=== PATIENT | female | born 1950 | race Caucasian/White ===

== ENCOUNTER 2017-07-02 12:10 | Inpatient (IN) | payer OTHER ==
[~2017-07-02] VITALS: Ht 180.3 cm; Wt 93.9 kg
--- NOTE | ~2017-07-02 | H ---
[facility] [place] [address] HISTORY AND PHYSICAL Name: EDWARD SHAIKH Room #: 450-P ADM IN M.R.#: [id number] Admission: 07/02/17 Attend Phys: Cirilo Fitzpatrick MD Discharge: Date of : 54 Report #: [id number] THIS REPORT FOR: //name// CC: Cirilo Medeiros Chaudhuri DATE OF SERVICE: 07/02/2017 REASON FOR ADMISSION: Pain and inflammation of bilateral amputation stumps. HISTORY OF PRESENT ILLNESS: The patient is a pleasant 66-year-old female who suffers from significant complications from diabetes with remote history of osteomyelitis in her lower extremities as well as severe neuropathy. She was doing well until Thursday and then started experiencing and noticing erythema and pain all over her left lower extremity BKA stump. This also has now progressed to involve the other extremity and has been progressing upwards towards her groin and hence she presented to the Emergency Room. Here she was noted to have significant leukocytosis as well as a fairly severe appearing cellulitis involving both extremities and also has evidence of acute renal failure concerning for severe sepsis and is being admitted for further workup of the same. When seen by me today, she has significant pain in both lower extremities; however, otherwise denies nausea, vomiting, diarrhea, dizziness, chest pain, shortness of breath, skin rashes or other problems at this time. PAST MEDICAL HISTORY: Includes: 1. 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 2. Obesity. 3. Sleep apnea. 4. Hypertension. 5. Depression. PAST SURGICAL HISTORY: Includes bilateral BKAs. FAMILY HISTORY: Includes diabetes. ALLERGIES: REPORTED TO CONTRAST DYE AND IODINE. MEDICATIONS: Refer to reconciliation note. SOCIAL HISTORY: No tobacco, alcohol or drug use reported. REVIEW OF SYSTEMS: Twelve-point review of systems performed and negative except as mentioned in history of present illness. PHYSICAL EXAMINATION: [facility] [address] [place] [address] HISTORY AND PHYSICAL Name: EDWARD SHAIKH Room #: 450-[facility] IN [facility].#: [id number] Admission: 07/02/17 Attend Phys: Cirilo Fitzpatrick MD Discharge: Date of : 54 Report #: [id number] VITAL SIGNS: Today, afebrile, pulse of 91, respiratory rate of 19, blood pressure is 142/66, O2 sat is 97 on room air. GENERAL: Awake, alert, no acute distress. HEENT: Unremarkable. NECK: No JVD or thyromegaly. CARDIOVASCULAR: S1 and S2 present. Regular. RESPIRATORY: Air entry present bilaterally. ABDOMEN: Obese, soft, nontender. EXTREMITIES: With extensive cellulitis and erythema primarily affecting entire back of left BKA stump with extending almost up to perineum. Anterior aspect also involved measuring approximately 20 x 15 cm with some area of sparing. Right lower extremity stump with minimal erythema at the base of stump with small lesion measuring about 1 cm noted with minimal drainage. No obvious deep infection is palpated. No obvious fluctuance is palpated. NEUROLOGIC: Awake, alert, no obvious focal findings. SKIN: Unremarkable otherwise LABORATORY DATA AND INVESTIGATIONS: CBC notable for leukocytosis of 22.2, hemoglobin 11.3, platelets of 203. Chemistry with hyponatremia 127, BUN and creatinine elevated at 44 and 2.4, glucose elevated at 372. Lactic acid within normal range. IMAGING: Not performed. ASSESSMENT AND PLAN: 1. This is a 66-year-old female presenting with severe cellulitis affecting both lower extremities with concerns for developing severe sepsis. At the present time, the patient has evidence of organ dysfunction with renal failure. She has been started on high volume fluid resuscitation and we will continue broad-spectrum IV antibiotic coverage with vancomycin, renally adjusted as well as Zosyn renally adjusted, and will assess for improvement. If she is not improving or worsening, she will require an MRI of her extremities to rule out any deep involvement; however, based on clinical examination this seems unlikely at the present time. 2. Diabetes with poor control at the present time with renal failure. We will hold glimepiride. We will resume her Levemir as well as start high dose sliding scale coverage. 3. Hyponatremia in the setting of hyperglycemia and diabetes. Hydrate and assess for improvement, control diabetes. 4. Acute renal failure, likely prerenal in the setting of sepsis. Hydrate and assess for improvement. 5. Deep venous thrombosis prophylaxis with low dose Lovenox. 6. Depression. Resume home meds. [address] [address] HISTORY AND PHYSICAL Name: EDWARD SHAIKH Room #: 450-[facility] M.R.#: [id number] Admission: 07/02/17 Attend Phys: Cirilo Fitzpatrick MD Discharge: Date of : 54 Report #: [id number] 7. The patient's condition and prognosis remains guarded at this time. She will be closely monitored with changes made pending her clinical progress. <ELECTRONICALLY SIGNED> By: Cirilo Fitzpatrick MD 07/03/17 1220 [id number] 1515 Cirilo Fitzpatrick MD /nt
[~2017-07-02 12:10] MED LIST: ACID REDUCER20 MG PO; AMARYL4 MG PO; AMITRIPTYLINE H25 M2 PO; APIDRA SOL100 UNIT/1 SQ; APIDRA SUBQ; ASPIR 8181 MG PO; AUGMENTIN 875875 MG PO; CEFTIN500 MG PO; DUONEB 2.5-0.5 M3 ML INH; ENOXAPARIN40 MG/0.1 SUBQ; FLOMAX0.4 MG PO; GABAPENTIN 100100 MG PO; GLUCAGEN1 MG IM; GLUCOSE GEL38 GM PO; GLUCOSE4 GM PO; HYDROCODONE-APA1 TA1 PO; KEFLEX500 MG PO; LANTUS SOL100 UNIT/1 SQ; LANTUS100 UNIT/M SUBQ; LEVEMIR SUBQ; LISINOPRIL10 MG PO; LISINOPRIL20 MG PO; MIRALAX17 GM PO; NEURONTIN600 MG PO; NOVOLOG100 UNIT/1 SUBQ; PANTOPRAZOLE SO40 M1 PO; PEPCID20 MG PO; PRINIVIL20 MG PO; SENNA8.6 MG PO; SERTRALINE HCL50 MG PO; TRIPLE ANTIBIO1 EAC1 TOP; TYLENOL325 MG PO; ZOLOFT50 MG PO
[2017-07-02 12:11] VITALS: BP 129/63
[2017-07-02 13:14] LABS: HEMATOCRIT 34.3 % (37.0-47.0); HEMOGLOBIN 11.3 gm/dL (12.0-15.0); MCH 26.5 pg (26.0-34.0); MCHC 32.9 g/dL (28.0-37.0); MCV 80.6 fL (80.0-100.0); PLATELET COUNT 203 thou/uL (150-400); RBC 4.25 mil/uL (4.20-5.00); RDW 15.7 % (10.5-14.5); WBC 22.2 thou/uL (4.0-11.0)
[2017-07-02 13:17] LABS: CALCIUM 9.1 mg/dL (8.5-10.1); CREATININE 2.4 mg/dL (0.6-1.0); POTASSIUM 4.8 mmol/L (3.5-5.1)
[2017-07-02 13:20] LABS: MANUAL DIFF YES
[2017-07-02 13:23] LABS: ALBUMIN 2.6 g/dL (3.4-5.0)
[2017-07-02 13:24] LABS: TOTAL BILIRUBIN 0.6 mg/dL (<0.1-1.0)
[2017-07-02] MEDS ORDERED: LISINOPRIL20 MG PO (13:50)
[2017-07-02] MEDS ORDERED: NEURONTIN600 MG PO (13:51)
[2017-07-02] MEDS ORDERED: PEPCID20 MG PO (13:52)
[2017-07-02 13:59] LABS: ABSOLUTE NEUTROPHILS 20.9 thou/uL (1.4-8.2); PLATELET ESTIMATE NORMAL; TOTAL CELL COUNT 100
[2017-07-02 14:08] VITALS: BP 142/66
[2017-07-02 14:29] VITALS: BP 142/66
[2017-07-02 14:45] VITALS: BP 128/51
[2017-07-02] MEDS ORDERED: ACID CONTROLLER20 MG PO (15:12)
[2017-07-02 19:38] VITALS: BP 116/49
[2017-07-02 23:58] VITALS: BP 106/50
[2017-07-03 04:35] VITALS: BP 132/62
[2017-07-03 06:40] LABS: HEMATOCRIT 30.6 % (37.0-47.0); HEMOGLOBIN 10.1 gm/dL (12.0-15.0); MCHC 33.2 g/dL (28.0-37.0); MCV 81.4 fL (80.0-100.0); RBC 3.76 mil/uL (4.20-5.00); RDW 15.5 % (10.5-14.5); WBC 12.5 thou/uL (4.0-11.0)
[2017-07-03 06:54] LABS: CALCIUM 8.7 mg/dL (8.5-10.1); CREATININE 1.9 mg/dL (0.6-1.0)
[2017-07-03 06:57] LABS: POTASSIUM 3.2 mmol/L (3.5-5.1)
[2017-07-03 07:08] VITALS: BP 100/57
[2017-07-03 11:26] VITALS: BP 126/63
[2017-07-03 15:03] VITALS: BP 129/58
[2017-07-03 19:50] VITALS: BP 142/62
[2017-07-04 03:35] VITALS: BP 119/65
[2017-07-04 06:48] LABS: HEMATOCRIT 29.5 % (37.0-47.0); HEMOGLOBIN 9.7 gm/dL (12.0-15.0); MCHC 32.9 g/dL (28.0-37.0); MCV 81.9 fL (80.0-100.0); RBC 3.6 mil/uL (4.20-5.00); RDW 15.5 % (10.5-14.5); WBC 7.4 thou/uL (4.0-11.0)
[2017-07-04 07:01] LABS: CALCIUM 8.8 mg/dL (8.5-10.1); CREATININE 1.7 mg/dL (0.6-1.0); POTASSIUM 3.8 mmol/L (3.5-5.1)
[2017-07-04 08:07] VITALS: BP 107/56
[2017-07-04 12:53] VITALS: BP 121/55
[2017-07-04 16:30] VITALS: BP 131/56
[2017-07-04 19:34] VITALS: BP 117/53
[2017-07-05 03:20] VITALS: BP 150/76
[2017-07-05 04:52] LABS: CALCIUM 8.7 mg/dL (8.5-10.1); CREATININE 1.5 mg/dL (0.6-1.0); POTASSIUM 4.2 mmol/L (3.5-5.1)
[2017-07-05 07:31] VITALS: BP 135/73
[2017-07-05 11:31] VITALS: BP 144/71
[2017-07-05 15:04] VITALS: BP 147/76
[2017-07-05 19:23] VITALS: BP 149/58
[2017-07-06 03:51] VITALS: BP 154/73
[2017-07-06 05:01] LABS: HEMATOCRIT 26.8 % (37.0-47.0); HEMOGLOBIN 8.8 gm/dL (12.0-15.0); MCH 26.8 pg (26.0-34.0); MCHC 32.9 g/dL (28.0-37.0); MCV 81.5 fL (80.0-100.0); PLATELET COUNT 210 thou/uL (150-400); RBC 3.29 mil/uL (4.20-5.00); RDW 15.4 % (10.5-14.5); WBC 9.4 thou/uL (4.0-11.0)
[2017-07-06 05:17] LABS: MANUAL DIFF YES
[2017-07-06 05:21] LABS: CALCIUM 8.5 mg/dL (8.5-10.1); CREATININE 1.3 mg/dL (0.6-1.0)
[2017-07-06 06:58] VITALS: BP 145/67
[2017-07-06 08:30] LABS: ABSOLUTE NEUTROPHILS 7.3 thou/uL (1.4-8.2); ANISOCYTOSIS 1+; METAMYELOCYTES 2 %; MYELOCYTES 1 %; POLYCHROMASIA OCCASIONAL; TOTAL CELL COUNT 100
[2017-07-06 12:20] VITALS: BP 153/65
[2017-07-06 20:24] VITALS: BP 130/63
[2017-07-07 04:38] VITALS: BP 194/84
[2017-07-07 05:33] VITALS: BP 168/66
[2017-07-07 08:36] VITALS: BP 117/69
[2017-07-07] MEDS ORDERED: GABAPENTIN 100100 MG PO (10:12)
[2017-07-07] MEDS ORDERED: PERCOCET PO (10:12)
[2017-07-07] MEDS ORDERED: AUGMENTIN 875875 MG PO (10:13)
[2017-07-07] MEDS ORDERED: DOXYCYCLINE 10100 MG PO (10:13)
[2017-07-07 15:07] VITALS: BP 117/69
== END 2017-07-07 17:03 | disposition home or self-care (01) | DRG 564 ==
LOC: ER 12:10 → 4W 13:52 → EROBS 13:52 → 4W 14:25
PROVIDERS: Hospitalist; Internal Medicine Endocrinology, Diabetes & Metabolism; Physician Assistant
DX: T87.43 Infection of amputation stump, right lower extremity (principal); A41.9 Sepsis, unspecified organism; E43 Unspecified severe protein-calorie malnutrition; N17.0 Acute kidney failure with tubular necrosis; R65.20 Severe sepsis without septic shock; L03.116 Cellulitis of left lower limb; L03.115 Cellulitis of right lower limb; E87.1 Hypo-osmolality and hyponatremia; I10 Essential (primary) hypertension; E11.42 Type 2 diabetes mellitus with diabetic polyneuropathy; G47.33 Obstructive sleep apnea (adult) (pediatric); E66.9 Obesity, unspecified; E11.65 Type 2 diabetes mellitus with hyperglycemia; F32.9 Major depressive disorder, single episode, unspecified; E87.6 Hypokalemia; Y83.5 Amputation of limb(s) as the cause of abnormal reaction of the patient, or of later complication, without mention of misadventure at the time of the procedure; Z68.28 Body mass index [BMI] 28.0-28.9, adult; Z79.4 Long term (current) use of insulin; Z79.84 Long term (current) use of oral hypoglycemic drugs; Z79.899 Other long term (current) drug therapy; Z87.891 Personal history of nicotine dependence; Z89.511 Acquired absence of right leg below knee; Z98.51 Tubal ligation status; Z91.041 Radiographic dye allergy status; Z83.3 Family history of diabetes mellitus
CPT/HCPCS: 10045

== ENCOUNTER 2017-09-26 14:30 | Emergency (ER) | payer OTHER ==
[~2017-09-26] VITALS: Ht 170.2 cm; Wt 104.3 kg
[~2017-09-26 14:30] MED LIST changes: +ACID CONTROLLER20 MG PO; +DOXYCYCLINE 10100 MG PO; +PERCOCET PO
[2017-09-26 15:27] LABS: HEMATOCRIT 32.2 % (37.0-47.0); HEMOGLOBIN 10.5 gm/dL (12.0-15.0); MCH 25.2 pg (26.0-34.0); MCHC 32.6 g/dL (28.0-37.0); MCV 77.3 fL (80.0-100.0); PLATELET COUNT 248 thou/uL (150-400); RBC 4.17 mil/uL (4.20-5.00); RDW 18.8 % (10.5-14.5); WBC 6.4 thou/uL (4.0-11.0)
[2017-09-26 15:28] LABS: MANUAL DIFF YES
[2017-09-26 15:53] LABS: ALBUMIN 2.7 g/dL (3.4-5.0); CALCIUM 8.9 mg/dL (8.5-10.1); CREATININE 1.6 mg/dL (0.6-1.0); POTASSIUM 3.6 mmol/L (3.5-5.1); TOTAL BILIRUBIN 0.3 mg/dL (<0.1-1.0); TOTAL PROTEIN 6.6 g/dL (6.4-8.2)
[2017-09-26 16:01] LABS: ABSOLUTE NEUTROPHILS 4.5 thou/uL (1.4-8.2); TOTAL CELL COUNT 100
[2017-09-26] MEDS ORDERED: NOVOLOG100 UNIT/1 SUBQ (16:45)
[2017-09-26] MEDS ORDERED: LANTUS100 UNIT/M SUBQ (17:23)
== END 2017-09-26 17:56 | disposition home or self-care (01) ==
LOC: ER 14:30
PROVIDERS: Nurse Practitioner Family
DX: E11.65 Type 2 diabetes mellitus with hyperglycemia (principal); E11.622 Type 2 diabetes mellitus with other skin ulcer; E11.40 Type 2 diabetes mellitus with diabetic neuropathy, unspecified; L89.892 Pressure ulcer of other site, stage 2; I10 Essential (primary) hypertension; G47.33 Obstructive sleep apnea (adult) (pediatric); Z79.4 Long term (current) use of insulin; Z87.891 Personal history of nicotine dependence; Z91.19 Patient's noncompliance with other medical treatment and regimen; Z91.041 Radiographic dye allergy status

== ENCOUNTER 2018-02-25 05:33 | Inpatient (IN) | payer OTHER ==
[2018-02-25] VITALS (7 sets, daily range): BP systolic 75–110; BP diastolic 40–60
--- NOTE | ~2018-02-25 | HC ---
[facility] [place] [address] [address] [place] [address] CONSULTATION Name: EDWARD SHAIKH Room #: 460-P ADM IN M.R.#: [id number] Admission: 02/25/18 Attend Phys: Kanu Darby MD Discharge: Date of : 54 Report #: [id number] THIS REPORT FOR: //name// CC: Kanu Darby [facility] REQUESTING PHYSICIAN: Dr. Kanu Darby. REASON FOR CONSULTATION: Medical management. HISTORY OF PRESENT ILLNESS: The patient is a 67-year-old female with a history of bilateral fantl-jnu-kslu amputations who was readmitted for revision of her left scuoc-bzk-isho amputation. She has a history of hypertension and diabetes. She recently completed a rehabilitation course at [facility] along with IV antibiotics; however, there has been persistent drainage from the left stump and therefore she was admitted for revision. PAST MEDICAL HISTORY: Diabetes type 2, insulin requiring; hypertension, history of osteomyelitis of the left foot. PAST SURGICAL HISTORY: Bilateral BKA. FAMILY HISTORY: Noncontributory. SOCIAL HISTORY: A 75-abal-magm history of smoking, quit about a year ago. She lives at home. ALLERGIES: CONTRAST IODINE. MEDICATIONS: Lisinopril, Levemir, Zoloft, gabapentin, Humalog. REVIEW OF SYSTEMS: She denies headache, chest pain, shortness of breath, abdominal pain, nausea, vomiting, diarrhea, constipation, dysuria, or syncope. OBJECTIVE: VITAL SIGNS: Temperature 37.7, pulse 95, respirations 18, blood pressure , O2 sat 96% on room air. GENERAL: She is awake and alert, in no distress. LUNGS: Clear. HEART: Regular. ABDOMEN: Soft, normoactive bowel sounds. EXTREMITIES: Left stump is dressed. Right stump is unremarkable. NEUROLOGIC: She is alert and oriented. ASSESSMENT: 1. Diabetes type 2. 2. Hypertension. [facility] [address] [place] [address] CONSULTATION Name: EDWARD SHAIKH Room #: 460-[facility] IN [facility]#: [id number] Admission: 02/25/18 Attend Phys: Kanu Darby MD Discharge: Date of : 54 Report #: [id number] 3. Infected left BKA stump. 4. Hyperkalemia. 5. Anemia of chronic disease. PLAN: For now, hold her JIGAR inhibitor, this may explain the elevated potassium with followup lab data. When she is tolerating a diet, reinstitute her insulin, although she seems to quite high doses, so we will have to monitor that. Social work to assist with discharge planning needs. We will follow her hospital stay with you. <ELECTRONICALLY SIGNED> By: Angel Galindo MD 02/26/18 1258 0835 1229 Angel Galindo MD /nt
--- NOTE | ~2018-02-25 | O ---
[facility] [place] [address] [address] [place] [address] OPERATIVE REPORT Name: EDWARD SHAIKH Room #: 460-P ADM IN M.R.#: [id number] Admission: 02/25/18 Attend Phys: Kanu Darby MD Discharge: Date of : 54 Report #: [id number] THIS REPORT FOR: //name// CC: Kanu Darby [facility] DATE OF SERVICE: 03/01/2018 PREOPERATIVE DIAGNOSIS: Left leg stump abscess. POSTOPERATIVE DIAGNOSIS: Left leg stump abscess. PROCEDURE: Left leg irrigation and debridement. SURGEON: Kanu Darby MD. MANAGEMENT EXPERT: Liya Cordova. ANESTHESIA: General. ESTIMATED BLOOD LOSS: Minimal. DRAINS: One Hemovac drain was placed. COMPLICATIONS: There were no complications. DESCRIPTION OF PROCEDURE: The patient was brought to the operating room where she was placed under general anesthesia. Once under adequate general anesthesia, her left lower extremity was prepped and draped in a sterile manner. The extremity was elevated and a tourniquet placed to 300 mmHg. The patient's previous incision was then opened. There was a slight amount of purulence noted, significantly improved from her last visit. The wound was completely opened. Any necrotic tissue was removed with a rongeur of which there was not much, and the wound was then irrigated copiously with normal saline solution through pulsatile lavage. A medium Hemovac drain was then placed, and subsequent to this, the wound was closed with 2-0 nylon and jose for the skin. The wounds were dressed with Xeroform, 4 x 4s, and a sterile soft compressive dressing was placed. Tourniquet was let down at approximately 20 minutes. There were no complications from the procedure. The patient went to the recovery room without incident. <ELECTRONICALLY SIGNED> By: Kanu Darby MD 03/02/18 0727 0839 1009 Kanu Darby MD /nt
--- NOTE | ~2018-02-25 | O ---
[facility] [place] [address] [place] [address] OPERATIVE REPORT Name: EDWARD SHAIKH Room #: 460-P [facility] IN M.R.#: [id number] Admission: 02/25/18 Attend Phys: Kanu Darby MD Discharge: Date of : 54 Report #: [id number] THIS REPORT FOR: //name// CC: Kanu Darby [facility] DATE OF SERVICE: 02/25/2018 PREOPERATIVE DIAGNOSIS: Left lower extremity stump wound infection. POSTOPERATIVE DIAGNOSIS: Left lower extremity stump wound infection. PROCEDURE: Left lower extremity below knee amputation stump irrigation and debridement. SURGEON: Kanu Darby MD CERAMICS TECHNICIAN: Liya Cordova PA-C ANESTHESIA: General. ESTIMATED BLOOD LOSS: Minimal. DRAINS: One Hemovac drain was placed. COMPLICATIONS: There were no complications. TOURNIQUET TIME: 20 minutes. DESCRIPTION OF PROCEDURE: The patient brought to the operating room where she was placed under general anesthesia. Once under adequate general anesthesia, her left lower extremity was prepped and draped in sterile manner. The extremity was elevated and a tourniquet placed to 300 mmHg. The patient's previous scar was excised sharply with a 15 blade and extended medially approximately 6 cm. This was then noted to have abundant purulence, particularly medially. This was then cultured. This was then followed down to the distal tibial stump area itself, which was then debrided with a rongeur. Any necrotic soft tissue was debrided with a rongeur. The pulsatile lavage was utilized to then irrigate the stump with 3 liters of normal saline solution. Once complete, the wound was irrigated once again copiously with normal saline and closed with 2-0 PDS and the subcutaneous tissues and 2-0 nylon with jose for the skin. The wound was dressed with Xeroform, 4 x 4s, and sterile soft compressive dressing was placed. Tourniquet was let down approximately 20 [facility] [address] [place] [address] OPERATIVE REPORT Name: NEELEDWARD Room #: 460-P [facility] IN [facility]#: [id number] Admission: 02/25/18 Attend Phys: Kanu Darby MD Discharge: Date of : 54 Report #: [id number] minutes. There were no complications from the procedure. The patient tolerated the procedure well and went to the recovery room without incident. <ELECTRONICALLY SIGNED> By: Kanu Darby MD 03/01/18 0836 1331 1406 Kanu Darby MD /nt
[~2018-02-25 05:33] MED LIST changes: +TYLENOL EXTRA500 MG PO; +ZOLOFT100 MG PO; +ZOSYN 3.3753.375 GM IV
[2018-02-26 03:52] VITALS: BP 101/64
[2018-02-26 06:37] LABS: HEMATOCRIT 31.7 % (37.0-47.0); HEMOGLOBIN 10.3 gm/dL (12.0-15.0)
[2018-02-26 06:55] LABS: POTASSIUM 5.3 mmol/L (3.5-5.1)
[2018-02-26 08:06] VITALS: BP 122/49
[2018-02-26 15:43] VITALS: BP 98/59
[2018-02-26 19:18] VITALS: BP 94/57
[2018-02-27 03:21] VITALS: BP 93/60
[2018-02-27 05:09] LABS: HEMOGLOBIN 9.7 gm/dL (12.0-15.0); MCH 26.5 pg (26.0-34.0); MCHC 33.2 g/dL (28.0-37.0); MCV 79.8 fL (80.0-100.0); RBC 3.64 mil/uL (4.20-5.00); WBC 5.4 thou/uL (4.0-11.0)
[2018-02-27 05:19] LABS: CALCIUM 8.8 mg/dL (8.5-10.1); CREATININE 2.1 mg/dL (0.6-1.0); POTASSIUM 4.9 mmol/L (3.5-5.1)
[2018-02-27 07:56] VITALS: BP 92/69
[2018-02-27 15:36] VITALS: BP 119/62
[2018-02-27 19:10] VITALS: BP 103/62
[2018-02-28 03:05] VITALS: BP 137/64
[2018-02-28 08:09] VITALS: BP 120/70
[2018-02-28 16:14] VITALS: BP 104/60
[2018-02-28 19:42] VITALS: BP 130/73
[2018-03-01 03:46] VITALS: BP 113/69
[2018-03-01 04:34] LABS: ABSOLUTE NEUTROPHILS 3.6 thou/uL (1.4-8.2); BASOPHILS 0.7 % (0.0-2.0); EOSINOPHILS 4.2 % (0.0-3.0); HEMATOCRIT 30.2 % (37.0-47.0); LYMPHOCYTES 24.4 % (24.0-44.0); MCH 26.3 pg (26.0-34.0); MCHC 33.2 g/dL (28.0-37.0); MCV 79.2 fL (80.0-100.0); MONOCYTES 8.5 % (1.0-8.0); PLATELET COUNT 221 thou/uL (150-400); POLYS 62.2 % (36.0-66.0); RBC 3.81 mil/uL (4.20-5.00); RDW 15.9 % (10.5-14.5); WBC 5.8 thou/uL (4.0-11.0)
[2018-03-01 07:40] VITALS: BP 119/74
[2018-03-01 10:00] VITALS: BP 116/75
[2018-03-01 16:00] VITALS: BP 115/70
[2018-03-01 19:44] VITALS: BP 130/53
[2018-03-02 02:54] VITALS: BP 102/61
[2018-03-02 08:06] VITALS: BP 121/64
[2018-03-02 15:40] VITALS: BP 139/74
[2018-03-02 19:36] VITALS: BP 130/72
[2018-03-03 03:25] VITALS: BP 113/67
[2018-03-03 07:20] VITALS: BP 109/66
[2018-03-03] MEDS ORDERED: ROCEPHIN 11 GM/1001 IV (12:42)
[2018-03-03] MEDS ORDERED: LANTUS100 UNIT/M SUBQ (12:43)
[2018-03-03] MEDS ORDERED: NOVOLOG100 UNIT/1 SUBQ (12:43)
[2018-03-03] MEDS ORDERED: PERCOCET 10-321 EACH PO (12:46)
== END 2018-03-03 18:15 | DRG 464 ==
LOC: TBA 05:33 → 4W 05:33 → PRE 14:57 → 4W 14:58 → PRE 15:00 → 4W 03-03 18:15
PROVIDERS: Internal Medicine Geriatric Medicine; Orthopaedic Surgery Foot and Ankle Surgery; Orthopaedic Surgery Sports Medicine
PROC: 0Y6G0ZZ Detachment at Left Knee Region, Open Approach (ICD-10-PCS; principal; 2018-02-25)
PROC: 0JBP0ZZ Excision of Left Lower Leg Subcutaneous Tissue and Fascia, Open Approach (ICD-10-PCS; 2018-03-01)
DX: T87.44 Infection of amputation stump, left lower extremity (principal); L02.416 Cutaneous abscess of left lower limb; E11.9 Type 2 diabetes mellitus without complications; I10 Essential (primary) hypertension; D63.8 Anemia in other chronic diseases classified elsewhere; E87.5 Hyperkalemia; Y83.8 Other surgical procedures as the cause of abnormal reaction of the patient, or of later complication, without mention of misadventure at the time of the procedure; E11.51 Type 2 diabetes mellitus with diabetic peripheral angiopathy without gangrene; Z89.511 Acquired absence of right leg below knee; Z89.512 Acquired absence of left leg below knee; Z91.041 Radiographic dye allergy status
CPT/HCPCS: 10047; 27000; 50010; 50101; 50386; 51412; 53078; 56525; 57091; 62110; 62900; 70005

== ENCOUNTER → 2018-03-15 | Outpatient (CLI) | payer OTHER ==
[~2018-03-15] MED LIST changes: +PERCOCET 10-321 EACH PO; +ROCEPHIN 11 GM/1001 IV
== END ==
LOC: HYPER 07:02
DX: T87.81 Dehiscence of amputation stump (principal); E11.9 Type 2 diabetes mellitus without complications; I10 Essential (primary) hypertension; K21.9 Gastro-esophageal reflux disease without esophagitis; D63.8 Anemia in other chronic diseases classified elsewhere; Z87.891 Personal history of nicotine dependence; Z79.4 Long term (current) use of insulin; Y83.5 Amputation of limb(s) as the cause of abnormal reaction of the patient, or of later complication, without mention of misadventure at the time of the procedure

== ENCOUNTER → 2018-03-29 | Outpatient (CLI) | payer OTHER | LOC: HYPER 06:58 | DX: T87.44 Infection of amputation stump, left lower extremity (principal); E11.621 Type 2 diabetes mellitus with foot ulcer; L97.811 Non-pressure chronic ulcer of other part of right lower leg limited to breakdown of skin; I10 Essential (primary) hypertension; D63.8 Anemia in other chronic diseases classified elsewhere; K21.9 Gastro-esophageal reflux disease without esophagitis; Z87.891 Personal history of nicotine dependence; Z89.511 Acquired absence of right leg below knee; Z89.512 Acquired absence of left leg below knee; Z79.4 Long term (current) use of insulin; Y83.5 Amputation of limb(s) as the cause of abnormal reaction of the patient, or of later complication, without mention of misadventure at the time of the procedure ==

== ENCOUNTER → 2018-04-27 | Outpatient (CLI) | payer OTHER | LOC: HYPER 06:50 | DX: T87.44 Infection of amputation stump, left lower extremity (principal); I10 Essential (primary) hypertension; D63.8 Anemia in other chronic diseases classified elsewhere; E11.9 Type 2 diabetes mellitus without complications; Z87.891 Personal history of nicotine dependence; Z89.511 Acquired absence of right leg below knee; Z79.4 Long term (current) use of insulin; Y83.5 Amputation of limb(s) as the cause of abnormal reaction of the patient, or of later complication, without mention of misadventure at the time of the procedure ==

== ENCOUNTER → 2018-05-18 | Outpatient (CLI) | payer OTHER | LOC: HYPER 06:59 | DX: T87.44 Infection of amputation stump, left lower extremity (principal); D63.8 Anemia in other chronic diseases classified elsewhere; E11.9 Type 2 diabetes mellitus without complications; K21.9 Gastro-esophageal reflux disease without esophagitis; Z87.891 Personal history of nicotine dependence; Z89.511 Acquired absence of right leg below knee; Z79.4 Long term (current) use of insulin; Y83.5 Amputation of limb(s) as the cause of abnormal reaction of the patient, or of later complication, without mention of misadventure at the time of the procedure ==